=== PATIENT | female | born 1985 | race Caucasian/White ===

== ENCOUNTER 2017-01-19 15:30 | Outpatient (CLI) | payer OTHER ==
[~2017-01-19] VITALS: Ht 175.3 cm; Wt 140.7 kg
[2017-01-19 16:34] VITALS: Ht 175.3 cm; Wt 140.7 kg
[2017-01-19 16:36] VITALS: BP 138/78; PULSE 96; RESP 18
--- NOTE | 2017-01-19 16:50 | NSTRPT ---
NST Information Datetime Report Generated by CPN: 01/19/2017 16:49 Datetime: 01/19/2017 13:07 NST Information EGA: 39.0 Test Number: 2 Time on Monitor: 01/19/2017 13:39 Time off Monitor: 01/19/2017 15:01 NST Duration (Min): 82 Reason for NST: Polyhydramnios Test and Monitor Explained: Monitor Explained; Test Explained; Verbalized Understanding Pulse: 97 Resp: 17 SBP: 115 DBP: 67 Test Evaluation NST Interventions: PO Hydration; Reposition Patient; Acoustic Stimulation Patient States Movement: Present Contraction Frequency: X1, denies FHR Baseline : 145 Variability: Moderate 6-25bpm Accelerations: 10X10 Decelerations: None FHR Category: Category I NST Results: Questionable Comments: Pt to U/S, EDY 24.0cm, cephalic. Strip reviewd by Dr. Rilye. recomendation is extended f etal monitoring. 1505-Pt to OB-TRG as ordered. Follow up NST appointment given. Kick Count ins tructions reviewed. Pt states understanding. No further questions asked at this time. Electronically Signed By E-Signature: with User ID: [id number], Addendum/Amendment: FHT record shows diminished variability, no qualifying (15x15) accelerations, no decelerations. Recommend prolonged monitoring. If FHTs remain non-reassuring, would consider deli very at this time.
--- NOTE | 2017-01-19 16:53 | RADRPT ---
PROCEDURE: OB ultrasound for biophysical profile CLINICAL INDICATION: Decreased movement TECHNIQUE: Multiple sonographic images of the pelvis were obtained. Transabdominal view of the gr avid uterus are available for review. The images were reviewed on a PACS workstation. COMPARISON: None FINDINGS: breathing movement = 2/2 tone = 2/2 motion = 2/2 EDY = 2/2 EDY = 22.0 cm Single live intrauterine with cardiac activity. heart rate equals 150 beats p er minute. Presentation is cephalic. The placenta is right fundal. IMPRESSION: 1. Single viable intrauterine gestation. 2. Biophysical profile = 8/8. 3. EDY = 22.0 cm. RPTAT: AA .Pavel Oliva MD, MD Date Time Electronically viewed and signed by .Pavel Oliva MD, MD on 01/19/2017 16:53 .B/
--- NOTE | 2017-01-19 16:55 | RADRPT ---
PROCEDURE: US OB. CLINICAL INDICATION: Decreased movement TECHNIQUE: Multiple sonographic images of the pelvis were obtained. Transabdominal imaging only w as performed. The images were reviewed on a PACS workstation. COMPARISON: No prior studies are available for comparison. FINDINGS: Single intrauterine gestation. Cephalic presentation. heart rate is 144 bpm. Measurements were made in order to determine age. The results are as follows: BPD = 9.37 cm HC = 33.40 cm AC = 36.90 cm FL = 7.57 cm Gestational age is 39 weeks 0 days and GERMÁN is 01/26/2017 by both LMP and ultrasound criteria. EFW = 3871 g +/- 581 g (84 %). The placenta is fundal/right lateral. There is no evidence for an abruption or placenta previa. IMPRESSION: 1. Single live intrauterine gestation of approximately 39 weeks 0 days by ultrasound criteria. RPTAT: HDWR .En Curran MD, MD Date Time Electronically viewed and signed by .En Curran MD, on 01/19/2017 16:55 .R/
[2017-01-19] MEDS ORDERED: FERR325C PO (17:13)
[2017-01-19] MEDS ORDERED: PRENAT PO (17:13)
--- NOTE | 2017-01-19 18:52 | TRIAGE ---
OB Triage Datetime Report Generated by CPN: 01/19/2017 18:52 Datetime: 01/19/2017 16:38 Time of Arrival: 01/19/2017 15:25 EGA: 39.0 Arrived By: Ambulatory Arrived From: Dr. Rodriguez Chief Complaint: NST for nonreactive strip in NST clinic Movement: Present Contractions: Denies/Absent Rupture of Membranes: Denies Vaginal Discharge: Denies Recent Sexual Intercouse: Denies Abdominal Trauma: Not Applicable Patient Complaints: None Time Provider Notified: 01/19/2017 16:13 Provider Notified: [facility] Initial Plan: NST, BPP/EDY, EFW Datetime: 01/19/2017 16:25 Assessment Type: Triage Maternal Assessment Level of Consciousness: Fully Conscious DTR's/Clonus: DTRs 2+; No Clonus Headache: Denies Blurred Vision: No Respiratory Effort: Unlabored; Regular Rhythm; Equal Expansion Breath Sounds, Left: Clear and Equal Breath Sounds, Right: Clear and Equal Nausea/Vomiting: Denies RUQ Epigastric Pain: Denies Lower Extremities Edema: Bilateral Lower Extremities Degree: 1+ Upper Extremities Edema: Bilateral Upper Extremities Degree: 1+ Facial Edema: None Fall Risk Assessment History of Falling: (0) No Secondary Diagnosis: (0) No Ambulatory Aid: (0) Bedrest/Nurse Assist IV Therapy: (0) No Gait: (0) Normal/Bedrest/Immobile Mental Status: (0) Oriented to Own Ability Fall Score: 0 Fall Risk Score Definition: No Risk: No action required
--- NOTE | 2017-04-05 18:25 | PN ---
Triage Information Date/Time 01/19/17 Weeks of Gestation 39 : 5 Para: 2 Assessment/Plan DECREASE MOVEMENTS CT MURPHY MD Apr 05, 2017 18:25
== END 2017-01-19 17:20 | disposition home or self-care (01) ==
LOC: OBT 15:30 → L-D 15:33 → OBT 17:20
PROVIDERS: ATTEND Obstetrics & Gynecology
DX: O36.8130 Decreased fetal movements, third trimester, not applicable or unspecified (principal); Z3A.39 39 weeks gestation of pregnancy
CPT/HCPCS: 76815; 76818; Z7500; G0463

== ENCOUNTER 2017-01-22 12:46 | Inpatient (IN) | payer OTHER ==
[~2017-01-22] VITALS: Ht 175.3 cm; Wt 139.2 kg
[~2017-01-22 12:46] MED LIST: FERR325C PO; PRENAT PO
[2017-01-22 12:52] VITALS: Ht 175.3 cm; Wt 139.2 kg
[2017-01-22 12:53] VITALS: BP 128/75; PULSE 110; RESP 18
--- NOTE | 2017-01-22 13:59 | RADRPT ---
PROCEDURE: OB ultrasound for biophysical profile CLINICAL INDICATION: In labor. TECHNIQUE: Multiple sonographic images of the pelvis were obtained. Transabdominal view of the gr avid uterus are available for review. The images were reviewed on a PACS workstation. COMPARISON: 01/19/2017 FINDINGS: breathing movement = 2/2 tone = 2/2 motion = 2/2 Quantitative amniotic fluid volume = 2/2 EDY = 14.3 cm Single live intrauterine with cardiac activity at 148 beats per minute. There is a fundal placenta without previa. IMPRESSION: 1. Single living intrauterine gestation in cephalic position. 2. Biophysical profile = 8/8. 3. EDY = 14.3 cm. RPTAT: AACC Physician Arnoldo Date Time Electronically viewed and signed by Physician Arnoldo on 01/22/2017 13:59 /
--- NOTE | 2017-01-22 14:03 | RADRPT ---
PROCEDURE: US OB. CLINICAL INDICATION: labor. TECHNIQUE: Multiple sonographic images of the pelvis were obtained. Transabdominal imaging only w as performed. The images were reviewed on a PACS workstation. COMPARISON: 01/19/2017. FINDINGS: There is a single living intrauterine gestation in cephalic position. There is an fundal placenta. There is no evidence of previa Adequate amnionic fluid is demonstrated. The amniotic fluid index is 14.3 cm. Active cardiac motion is seen at 144 beats per minute. The biparietal diameter is 9.14 cm consistent with 03-tksz-0-day gestation. The head circumference is 31.28 cm consistent with 65-luqo-5-day gestation. The abdominal circumference is 36.6 cm consistent with a 54-mfeo-8-day gestation. The femur length is 7.36 cm consistent with 37-qcaw-8-day gestation. Estimated weight is 3602 plus or minus 540 g IMPRESSION: 1. Single living intrauterine gestation in cephalic position with a mean gestational age by ultrasound of 37 weeks 4 days plus or minus 18-day with estimated date of delivery of 02/08/2017. RPTAT: AACC Physician Arnoldo Date Time Electronically viewed and signed by Physician Arnoldo on 01/22/2017 14:03 /
[2017-01-22] MEDS ORDERED: OXYTOCIN 30 UNITS/LR 500 ML IV PRN (15:00)
[2017-01-22] MEDS ORDERED: LIDOCAINE 1% (MPF) 30 ML INJ INJ PRN (15:00)
[2017-01-22] MEDS ORDERED: CARBOPROST 250 MCG INJ IM PRN (15:00)
[2017-01-22] MEDS ORDERED: BUTORPHANOL 2 MG INJ IV PRN ×2 (15:00)
[2017-01-22] MEDS ORDERED: IBUPROFEN 600 MG TAB PO PRN (15:00)
[2017-01-22] MEDS ORDERED: MISOPROSTOL 200 MCG TAB PR PRN (15:00)
[2017-01-22] MEDS ORDERED: METHYLERGONOVINE 0.2 MG INJ IM PRN (15:00)
[2017-01-22] MEDS: LACTATED RINGER'S 1,000 ML IV SCH ×2 (15:10→21:16)
[2017-01-22 15:53] LABS: ADD SCAN DIFF NO
[2017-01-22 15:54] LABS: BASOPHILS % 0.2 % (0.0-2.0); EOSINOPHILS % 0.4 % (0.0-7.0); HEMATOCRIT 35.9 % (37.0-47.0); LYMPHOCYTES # 1.5 10^3/ul (0.8-2.9); LYMPHOCYTES % 14.3 % (15.0-51.0); MEAN CORPUSCULAR HEMOGLOBIN 28.4 pg (29.0-33.0); MEAN CORPUSCULAR HGB CONC 33.4 g/dl (32.0-37.0); MEAN CORPUSCULAR VOLUME 85.1 fl (82.0-101.0); MEAN PLATELET VOLUME 9.1 fl (7.4-10.4); MONOCYTE # 0.7 10^3/ul (0.3-0.9); NEUTROPHIL # 8.1 10^3/ul (1.6-7.5); NEUTROPHILS % 77.7 % (39.0-77.0); PLATELET COUNT 320 10^3/UL (140-415); RED BLOOD COUNT 4.22 10^6/ul (4.20-5.40); RED CELL DISTRIBUTION WIDTH 13.8 % (11.5-14.5); WHITE BLOOD COUNT 10.4 10^3/ul (4.8-10.8)
[2017-01-22] MEDS ORDERED: FENTAnyl 2MCG/ML-ROPIV 0.2% 100 ML ONE (16:00)
[2017-01-22] MEDS ORDERED: LACTATED RINGER'S 1,000 ML IV PRN (16:00)
[2017-01-22 16:07] LABS: INR 1.02; PARTIAL THROMBOPLASTIN TIME 24.5 Sec (25.0-35.0); PROTIME 13.4 Sec (12.2-14.2)
[2017-01-22] MEDS: OXYTOCIN 30 UNITS/LR 500 ML IV SCH ×2 (22:42→22:47)
--- NOTE | 2017-01-22 23:07 | HP ---
Date/Time of Note Date/Time of Note DATE: 01/22/17 TIME: 23:01 OB - History Hx of Present Free Text/Dictation 31 y.o A2 at [id number] active labor VE 3.9xm348% -3 admitted for expectant management Estimated Due Date: January 26, 2017 : 5 Para: 2 Spontaneous : 2 Therapeutic : 0 Care: Good Care Ultrasounds: Normal mid trimester US Obstetrical Complications: None Medical Complications: None Past Family/Social History * Past Medical, Surgical, Family and Obstetric Histories reviewed from chart. Blood Type: A+ Rubella: immune RPR/VDRL: Negative GBS Status: Negative HBsAG: Negative OB Admission Exam Vital Signs Vital Signs Vital Signs Date Time Temp Pulse Resp B/P Pulse Ox O2 Delivery O2 Flow Rate FiO2 01/22/17 12:53 98.0 110 18 128/75 Room Air Physical Exam HEENT: WNL Heart: Rhythm Normal Lungs: Clear, Equal Abdomen: WNL Extremities: Normal Reflexes: Normal Cervical Dilatation: 3cm Effacement: 100% Station: -3 Amniotic Fluid: Unevaluable Heart Rate: 140's Accelerations: Accelerations Present Decelerations: No Decelerations Varibility: Moderate Contractions on Admission: < 5 Minutes Apart Last 72 hours Lab Results CBC & BMP 01/22/17 15:40 OB Assessment/Plan Reason for admission: active labor Plan: Expectant Management CARYN MASON MD January 22, 2017 23:07
--- NOTE | 2017-01-22 23:15 | LDN ---
Date/Time of Note Date/Time of Note DATE: 01/22/17 TIME: 23:13 Delivery Summary normal vaginal delivery Weeks of Gestation 39w3d Placenta Delivered: Spontaneously Meconium: Thick Episiotomy: No Perineal laceration: 1 Laceration repair: ooocat gut Anesthesia type: Epidural Sponge & Needle done & correct: Yes All needle counts correct: Yes Any foreign bodies felt in the: No Problems: Delivery Information Apgars 1 Minute: 8 5 Minute: 9 Suctioning Nose & mouth suctioned at brigitte: Yes Umbilical Cord Umbilical cord with: 3 Vessels Cord presentations: nuchal cord Nuchal cord present X: 1 Cord Blood was obtained: Yes Mother & Baby Disposition Disposition Mom & Baby to Maternity; Good: Yes Mom transferred to: Other Baby to NICU: No (postpaartum) CARYN MASON MD January 22, 2017 23:15
[2017-01-23 00:30] VITALS: BP 145/83; PULSE 88; RESP 20
[2017-01-23] MEDS ORDERED: MISOPROSTOL 200 MCG TAB PR PRN (02:30)
[2017-01-23] MEDS ORDERED: LANOLIN 7 GM TUBE TOP PRN (02:30)
[2017-01-23] MEDS ORDERED: WITCH HAZEL/GLYCERIN PAD PR PRN (02:30)
[2017-01-23] MEDS ORDERED: BENZOCAINE 20% 56 ML SPRAY TOP PRN (02:30)
[2017-01-23] MEDS ORDERED: ZOLPIDEM 5 MG TAB PO PRN (02:30)
[2017-01-23] MEDS ORDERED: OXYTOCIN 30 UNITS/LR 500 ML IV PRN (02:30)
[2017-01-23] MEDS ORDERED: CARBOPROST 250 MCG INJ IM PRN (02:30)
[2017-01-23] MEDS ORDERED: OXYCODONE/ASPIRIN (4.88/325) TAB PO PRN ×2 (02:30)
[2017-01-23] MEDS ORDERED: METHYLERGONOVINE 0.2 MG INJ IM PRN (02:30)
[2017-01-23] MEDS ORDERED: LACTATED RINGER'S 1,000 ML IV SCH (03:00)
[2017-01-23 03:30] VITALS: BP 122/65; PULSE 74; RESP 18
[2017-01-23] MEDS: IBUPROFEN 600 MG TAB PO SCH ×4 (05:38→23:36)
[2017-01-23 08:00] VITALS: BP 122/62; PULSE 86; RESP 20
[2017-01-23 08:28] LABS: ADD SCAN DIFF NO
[2017-01-23 08:50] LABS: BASOPHILS % 0.2 % (0.0-2.0); EOSINOPHILS # 0.1 10^3/ul (0.0-0.5); EOSINOPHILS % 0.5 % (0.0-7.0); HEMATOCRIT 31.5 % (37.0-47.0); HEMOGLOBIN 10.1 g/dl (12.0-16.0); LYMPHOCYTES # 1.4 10^3/ul (0.8-2.9); MEAN CORPUSCULAR HEMOGLOBIN 27.7 pg (29.0-33.0); MEAN CORPUSCULAR HGB CONC 32.1 g/dl (32.0-37.0); MEAN CORPUSCULAR VOLUME 86.5 fl (82.0-101.0); MEAN PLATELET VOLUME 9.7 fl (7.4-10.4); MONOCYTE # 0.7 10^3/ul (0.3-0.9); MONOCYTES % 6.1 % (0.0-11.0); NEUTROPHIL # 9.3 10^3/ul (1.6-7.5); NEUTROPHILS % 80.9 % (39.0-77.0); PLATELET COUNT 235 10^3/UL (140-415); RED BLOOD COUNT 3.64 10^6/ul (4.20-5.40); RED CELL DISTRIBUTION WIDTH 13.9 % (11.5-14.5); WHITE BLOOD COUNT 11.5 10^3/ul (4.8-10.8)
[2017-01-23] MEDS: SENNA/DOCUSATE NA (8.6MG/50MG) TAB PO SCH ×2 (09:00→21:00)
[2017-01-23 12:00] VITALS: BP 120/65; PULSE 91; RESP 20
--- NOTE | 2017-01-23 15:53 | PN ---
Date/Time of Note Date/Time of Note DATE: 01/23/17 TIME: 15:52 OB Subjective Subjective Subjective January 23, 2017 Laboratory Tests Test 01/23/17 07:25 White Blood Count 11.510^3/ul Red Blood Count 3.6410^6/ul Hemoglobin 10.1g/dl Hematocrit 31.5% Mean Corpuscular Volume 86.5fl Mean Corpuscular Hemoglobin 27.7pg Mean Corpuscular Hemoglobin Concent 32.1g/dl Red Cell Distribution Width 13.9% Platelet Count 33104^3/UL Mean Platelet Volume 9.7fl Neutrophils % 80.9% Lymphocytes % 12.0% Monocytes % 6.1% Eosinophils % 0.5% Basophils % 0.2% Nucleated Red Blood Cells % 0.0/100WBC Neutrophils # 9.310^3/ul Lymphocytes # 1.410^3/ul Monocytes # 0.710^3/ul Eosinophils # 0.110^3/ul Basophils # 0.010^3/ul Nucleated Red Blood Cells # 0.010^3/ul Current Medications Medications (Trade) Dose Ordered Sig/Shantal Route PRN Reason Start Time Stop Time Status Last Admin Dose Admin Lactated Ringer's (Lr) 1,000 ml @ 125 mls/hr Q8H IV 01/22/17 14:43 01/23/17 02:18 DC 01/22/17 21:16 Butorphanol Tartrate (Stadol) 1 mg Q2H PRN IV PAIN 01/22/17 15:00 01/23/17 02:18 DC Butorphanol Tartrate (Stadol) 2 mg Q2H PRN IV PAIN 01/22/17 15:00 01/23/17 02:18 DC Lidocaine 30 ml 30 ml ONCE PRN INJ EPISIOTOMY/TEARING 01/22/17 15:00 01/23/17 02:18 DC 01/22/17 22:42 Oxytocin/Lactated Ringer's 500 ml @ 125 mls/hr ONCE -MAY REPEAT X1 IV 01/22/17 15:00 01/23/17 02:19 DC 01/22/17 22:47 Ibuprofen 600 mg 600 mg ONCE PRN PO Mild Pain (Pain Score 1-3) 01/22/17 15:00 01/23/17 02:19 DC Lactated Ringer's 1,000 ml @ 2,000 mls/hr Q30M PRN IV PRE-EPIDURAL BOLUS 01/22/17 16:00 01/23/17 02:19 DC 01/22/17 16:37 Oxytocin/Lactated Ringer's 500 ml @ 0 mls/hr ONCE PRN IV For Hemorrhage Management 01/22/17 15:00 01/23/17 02:19 DC Methylergonovine Maleate (Methergine) 0.2 mg ONCE PRN IM VAGINAL BLEEDING 01/22/17 15:00 01/23/17 02:19 DC Carboprost Tromethamine (Hemabate) 250 mcg ONCE PRN IM VAGINAL BLEEDING 01/22/17 15:00 01/23/17 02:19 DC Misoprostol 1000 mcg 1,000 mcg ONCE PRN [place] VAGINAL BLEEDING 01/22/17 15:00 01/23/17 02:19 DC Fentanyl/ Ropivacaine 100 ml @ ud STK-MED ONCE .ROUTE 01/22/17 16:00 01/22/17 16:01 DC Ibuprofen (Motrin) 600 mg Q6 PO 01/23/17 06:00 01/23/17 05:38 Oxycodone/Aspirin (Percodan) 1 tab Q3H PRN PO PAIN LEVEL 1-5 01/23/17 02:30 Oxycodone/Aspirin (Percodan) 2 tab Q3H PRN PO PAIN LEVEL 6-10 01/23/17 02:30 Zolpidem Tartrate (Ambien) 5 mg QHS PRN PO INSOMNIA 01/23/17 02:30 Senna/Docusate Sodium (Senokot-S) 1 tab BID PO 01/23/17 09:00 Witch Sienna/ Glycerin (Tucks Pads) 1 pad BEDSIDE MEDICATION PRN [place] HEMORRHOID/EPISIOTMY PAIN 01/23/17 02:30 01/23/17 02:46 Benzocaine (Dermoplast [place]) 1 spray BEDSIDE MEDICATION PRN TOP HEMORRHOID/EPISIOTMY PAIN 01/23/17 02:30 01/23/17 02:46 Lanolin (Wax-J-Khuhkg) 1 applic BEDSIDE MEDICATION PRN TOP BEDSIDE FOR JESSICA TO NIPPLES 01/23/17 02:30 01/23/17 02:46 Diphtheria/ Tetanus/Acell Pertussis 0.5 ml 0.5 ml ONCE ONCE IM* 01/24/17 09:00 01/24/17 09:01 Oxytocin/Lactated Ringer's 500 ml @ 0 mls/hr ONCE PRN IV For Hemorrhage Management 01/23/17 02:30 Methylergonovine Maleate (Methergine) 0.2 mg ONCE PRN IM VAGINAL BLEEDING 01/23/17 02:30 Carboprost Tromethamine (Hemabate) 250 mcg ONCE PRN IM VAGINAL BLEEDING 01/23/17 02:30 Misoprostol 1000 mcg 1,000 mcg ONCE PRN [place] VAGINAL BLEEDING 01/23/17 02:30 Lactated Ringer's (Lr) 1,000 ml @ 125 mls/hr Q8H IV 01/23/17 03:00 01/23/17 02:46 Post day 1 Patient is doing well, Ambulatory She is afebrile Abdomen is soft , Fundus is firm Moderate amount of lochia Breasts are soft, Nipples are intact No calf tenderness. Perineum is healing well. Breast feeding the new born. SHANDA PRICE MD January 23, 2017 15:53
--- NOTE | 2017-01-23 15:55 | PN ---
Date/Time of Note Date/Time of Note DATE: 01/23/17 TIME: 15:54 OB Subjective Subjective Subjective January 2305/2017 Laboratory Tests Test 01/23/17 07:25 White Blood Count 11.510^3/ul Red Blood Count 3.6410^6/ul Hemoglobin 10.1g/dl Hematocrit 31.5% Mean Corpuscular Volume 86.5fl Mean Corpuscular Hemoglobin 27.7pg Mean Corpuscular Hemoglobin Concent 32.1g/dl Red Cell Distribution Width 13.9% Platelet Count 25404^3/UL Mean Platelet Volume 9.7fl Neutrophils % 80.9% Lymphocytes % 12.0% Monocytes % 6.1% Eosinophils % 0.5% Basophils % 0.2% Nucleated Red Blood Cells % 0.0/100WBC Neutrophils # 9.310^3/ul Lymphocytes # 1.410^3/ul Monocytes # 0.710^3/ul Eosinophils # 0.110^3/ul Basophils # 0.010^3/ul Nucleated Red Blood Cells # 0.010^3/ul Current Medications Medications (Trade) Dose Ordered Sig/Shantal Route PRN Reason Start Time Stop Time Status Last Admin Dose Admin Lactated Ringer's (Lr) 1,000 ml @ 125 mls/hr Q8H IV 01/22/17 14:43 01/23/17 02:18 DC 01/22/17 21:16 Butorphanol Tartrate (Stadol) 1 mg Q2H PRN IV PAIN 01/22/17 15:00 01/23/17 02:18 DC Butorphanol Tartrate (Stadol) 2 mg Q2H PRN IV PAIN 01/22/17 15:00 01/23/17 02:18 DC Lidocaine 30 ml 30 ml ONCE PRN INJ EPISIOTOMY/TEARING 01/22/17 15:00 01/23/17 02:18 DC 01/22/17 22:42 Oxytocin/Lactated Ringer's 500 ml @ 125 mls/hr ONCE -MAY REPEAT X1 IV 01/22/17 15:00 01/23/17 02:19 DC 01/22/17 22:47 Ibuprofen 600 mg 600 mg ONCE PRN PO Mild Pain (Pain Score 1-3) 01/22/17 15:00 01/23/17 02:19 DC Lactated Ringer's 1,000 ml @ 2,000 mls/hr Q30M PRN IV PRE-EPIDURAL BOLUS 01/22/17 16:00 01/23/17 02:19 DC 01/22/17 16:37 Oxytocin/Lactated Ringer's 500 ml @ 0 mls/hr ONCE PRN IV For Hemorrhage Management 01/22/17 15:00 01/23/17 02:19 DC Methylergonovine Maleate (Methergine) 0.2 mg ONCE PRN IM VAGINAL BLEEDING 01/22/17 15:00 01/23/17 02:19 DC Carboprost Tromethamine (Hemabate) 250 mcg ONCE PRN IM VAGINAL BLEEDING 01/22/17 15:00 01/23/17 02:19 DC Misoprostol 1000 mcg 1,000 mcg ONCE PRN [place] VAGINAL BLEEDING 01/22/17 15:00 01/23/17 02:19 DC Fentanyl/ Ropivacaine 100 ml @ ud STK-MED ONCE .ROUTE 01/22/17 16:00 01/22/17 16:01 DC Ibuprofen (Motrin) 600 mg Q6 PO 01/23/17 06:00 01/23/17 05:38 Oxycodone/Aspirin (Percodan) 1 tab Q3H PRN PO PAIN LEVEL 1-5 01/23/17 02:30 Oxycodone/Aspirin (Percodan) 2 tab Q3H PRN PO PAIN LEVEL 6-10 01/23/17 02:30 Zolpidem Tartrate (Ambien) 5 mg QHS PRN PO INSOMNIA 01/23/17 02:30 Senna/Docusate Sodium (Senokot-S) 1 tab BID PO 01/23/17 09:00 Witch Sienna/ Glycerin (Tucks Pads) 1 pad BEDSIDE MEDICATION PRN [place] HEMORRHOID/EPISIOTMY PAIN 01/23/17 02:30 01/23/17 02:46 Benzocaine (Dermoplast [place]) 1 spray BEDSIDE MEDICATION PRN TOP HEMORRHOID/EPISIOTMY PAIN 01/23/17 02:30 01/23/17 02:46 Lanolin (Vyd-B-Hpkfrh) 1 applic BEDSIDE MEDICATION PRN TOP BEDSIDE FOR JESSICA TO NIPPLES 01/23/17 02:30 01/23/17 02:46 Diphtheria/ Tetanus/Acell Pertussis 0.5 ml 0.5 ml ONCE ONCE IM* 01/24/17 09:00 01/24/17 09:01 Oxytocin/Lactated Ringer's 500 ml @ 0 mls/hr ONCE PRN IV For Hemorrhage Management 01/23/17 02:30 Methylergonovine Maleate (Methergine) 0.2 mg ONCE PRN IM VAGINAL BLEEDING 01/23/17 02:30 Carboprost Tromethamine (Hemabate) 250 mcg ONCE PRN IM VAGINAL BLEEDING 01/23/17 02:30 Misoprostol 1000 mcg 1,000 mcg ONCE PRN [place] VAGINAL BLEEDING 01/23/17 02:30 Lactated Ringer's (Lr) 1,000 ml @ 125 mls/hr Q8H IV 01/23/17 03:00 01/23/17 02:46 Post day 1 Patient is doing well, Ambulatory She is afebrile Abdomen is soft , Fundus is firm Moderate amount of lochia Breasts are soft, Nipples are intact No calf tenderness. Perineum is healing well. Breast feeding the new born. SHANDA PRICE MD January 23, 2017 15:55
[2017-01-23 16:00] VITALS: BP 119/62; PULSE 55; RESP 18
[2017-01-23 20:00] VITALS: BP 110/56; PULSE 91; RESP 18
[2017-01-24 04:00] VITALS: BP 116/65; PULSE 85; RESP 18
[2017-01-24] MEDS: IBUPROFEN 600 MG TAB PO SCH ×2 (06:00→11:55)
[2017-01-24 08:00] VITALS: BP 116/76; PULSE 76; RESP 20
[2017-01-24] MEDS: SENNA/DOCUSATE NA (8.6MG/50MG) TAB PO SCH (09:00)
[2017-01-24] MEDS ORDERED: DIPHTH/TET/ACEL PERTUSS (ADULT) 0.5 ML VIAL IM* ONE (09:00)
--- NOTE | 2017-01-24 09:22 | PD.PPDC ---
BODY CARE MANAGER Discharge Instruction Condition Patient Condition: Good Diet Diet: Resume Regular Diet Activity/Restrictions Activity: Normal Activity May Shower Restrictions: No Exercising No Lifting No Driving No Sexual Activity Nothing in the Vagina No [place] No Tampons, douche Follow-up Follow-up with Physician: 2, Week/Weeks Provider Information: Appointment clinic in 2 weeks for post check Return to clinic for SWITCHBOARD OPERATOR Instructions: Fever greater than 101 Worsening abdominal pain Excessive Vaginal Bleeding More than 2 pads per hour Unable to tolerate diet CT MURPHY MD January 24, 2017 09:22
--- NOTE | 2017-01-24 09:26 | DS ---
Date/Time of Note Date/Time of Note DATE: 01/24/17 TIME: 09:24 Discharge Summary Admission/Discharge Info Admit Date/Time January 22, 2017 at 15:12 Discharge Date/Time January 24, 2017 at 9:30 AM Final Diagnosis Normal vaginal delivery Patient Condition: Good Procedures Normal spontaneous vaginal delivery Hx of Present Illness Term in labor Hospital Course Satisfactory uneventful Home Meds Reported Medications Ferrous Sulfate (Iron) 325 Mg Capsule.er, 325 MG PO, CAP 01/19/17 Multivit/Min/Fol Ac/Iron/Pren* ( S*) 1 Tab Tab, 1 TAB PO DAILY, TAB 01/19/17 Follow-up Plan instructions given recommended appointment to the office in [address] MURPHY MD January 24, 2017 09:25
== END 2017-01-24 14:50 | disposition home or self-care (01) | DRG 775 ==
LOC: L-D 12:46 → OBT 12:46 → L-D 15:12 → PP1 01-23 00:29
PROVIDERS: ADMIT Obstetrics & Gynecology; ATTEND Obstetrics & Gynecology
PROC: 10E0XZZ Delivery of Products of Conception, External Approach (ICD-10-PCS; principal; 2017-01-22)
PROC: 0HQ9XZZ Repair Perineum Skin, External Approach (ICD-10-PCS; 2017-01-22)
DX: O99.214 Obesity complicating childbirth (principal); Z68.42 Body mass index [BMI] 45.0-49.9, adult; E66.01 Morbid (severe) obesity due to excess calories; O70.0 First degree perineal laceration during delivery; O69.81X0 Labor and delivery complicated by cord around neck, without compression, not applicable or unspecified; Z3A.39 39 weeks gestation of pregnancy; Z37.0 Single live birth
CPT/HCPCS: 62319; 76815; 76818; 85025; 85610; 85730; 86592; 86900; 86901; 87340; 90715; 99464; G0463; J2590; J3010; J7120